=== PATIENT | female | born 1995 | race Caucasian/White ===

== ENCOUNTER 2019-07-22 23:45 | Inpatient (IN) | payer OTHER, SELFPAY ==
[2019-07-23] VITALS (75 sets, daily range): BP systolic 98–143; BP diastolic 50–123; PULSE 85–137; RESP 16–20; TEMP 36.6–37.4; O2SAT 85–100; BMI 31.2
--- NOTE | 2019-07-23 00:26 | LDADM ---
This patient, Demetrice Bangura, was admitted to Labor/Delivery/Recovery 107 on 07/22/19 at 23:45. Plans for labor, pain management and were discussed with patient. Patient/family oriented to hospital policies and general routines including ID bracelet, bed and alarms, visiting hours, pain management, procedures, bathroom and other care routines, personal items, smoking policy, room service/diet and guest tray routines, security routines, and visiting hours. Patient/Family are encouraged to report perceived risks to care and to ask questions if they do not understand what they are told or what they should do. See OBIX for further documentation.
[2019-07-23 00:32] LABS: Basophils Percent Auto 0.5 % (0.2-1.2); Eosinophils Absolute Auto 0.1 K/mm3 (0-0.3); Eosinophils Percent Auto 1.3 % (0-4.4); Hematocrit 34.7 % (37.0-47.0); Hemoglobin 11.7 g/dL (12.0-15.0); Immature Granulocyte Absolute 0.04 K/mm3 (0.00-0.031); Immature Granulocyte Percent A 0.5 % (0-0.5); Lymphocytes Absolute Auto 1.48 K/mm3 (0.9-3.2); Lymphocytes Percent Auto 17.1 % (18.3-44.2); Mean Corpuscular HGB Conc 33.7 g/dl (32-36); Mean Corpuscular Hemoglobin 31.1 pg (26-34); Mean Corpuscular Volume 92.3 fl (80-100); Mean Platelet Volume 10.4 fl (7.4-10.4); Monocytes Absolute Auto 0.9 K/mm3 (0.1-0.6); Monocytes Percent Auto 10.4 % (2.6-8.5); Neutrophils Absolute Auto 6.1 K/mm3 (1.3-6.7); Neutrophils Percent Auto 70.2 % (45.5-73.1); Platelet Count Result 216 k/mm3 (150-375); Red Blood Count 3.76 M/mm3 (4.2-5.4); Red Cell Distribution Width 13.5 % (11.5-14.5); White Blood Count 8.7 K/mm3 (4.5-10.0)
[2019-07-23] MEDS: AMPICILLIN 2 GM/NS 100 ML 2 GM/100 ML BAG IVPB (00:44)
[2019-07-23] MEDS: LACTATED RINGERS 1,000 ML 125 ML IV CONT ×2 (00:44→02:49)
[2019-07-23] MEDS: SALINE 0.65% NAS SOLN 44 ML BTL 1 SPRAY NASAL (01:26)
--- NOTE | 2019-07-23 03:08 | P.PNAN_ITS ---
Anes - Eval Pre Procedure Procedure: Labor epidural Date/Time: 07/23/19 03:08 Surgeon: Mayda Celeste M.D. Preop Diagnosis: pain during labor Pre Op Diagnosis: leaking fluid Patient Data Age: 24 Gender: F Height: 1.6 m Weight: 80 kg Last Vital Signs Temp 37.2 C 07/23/19 01:59 Pulse 110 H 07/23/19 03:07 Resp 20 07/23/19 01:59 BP 140/92 H 07/23/19 03:07 Pulse Ox 100 07/23/19 03:07 Allergies Allergy/AdvReac Type Severity Reaction Status Date / Time sertraline Allergy Mild Rash Verified 07/06/19 13:42 Home Medications Medication Instructions Recorded Confirmed Type PNV cmb#95-ferrous fumarate-FA 1 tablet PO DAILY 07/06/19 07/06/19 History [] Laboratory Tests 07/23/19 07/23/19 07/23/19 00:19 00:19 00:19 WBC 8.7 K/mm3 K/mm3 (4.5-10.0) RBC 3.76 M/mm3 L M/mm3 (4.2-5.4) Hgb 11.7 g/dL L g/dL (12.0-15.0) Hct 34.7 % L % (37.0-47.0) MCV 92.3 fl fl (80-100) MCH 31.1 pg pg (26-34) MCHC 33.7 g/dl g/dl (32-36) RDW 13.5 % % (11.5-14.5) Plt Count 216 k/mm3 k/mm3 (150-375) MPV 10.4 fl fl (7.4-10.4) Immature Gran % (Auto) 0.5 % % (0-0.5) Neut % (Auto) 70.2 % % (45.5-73.1) Lymph % (Auto) 17.1 % L % (18.3-44.2) [place] % (Auto) 10.4 % H % (2.6-8.5) Eos % (Auto) 1.3 % % (0-4.4) Baso % (Auto) 0.5 % % (0.2-1.2) Lymph # (Auto) 1.48 K/mm3 K/mm3 (0.9-3.2) [place] # (Auto) 0.9 K/mm3 H K/mm3 (0.1-0.6) Eos # (Auto) 0.1 K/mm3 K/mm3 (0-0.3) Baso # (Auto) 0.0 K/mm3 K/mm3 (0.0-0.1) Abs Immat Gran (auto) 0.04 K/mm3 H K/mm3 (0.00-0.031) Absolute Neuts (auto) 6.1 K/mm3 K/mm3 (1.3-6.7) Absolute Nucleated RBC 0.0 K/mm3 K/mm3 (0.0-0.012) Nucleated RBC % 0.0 % % (0.0-0.2) RPR Pending Blood Type A Positive Antibody Screen Negative Patient hx anesthesia problems: none Family hx anesthesia problems: none [facility] Past Medical History Medical History (Updated 07/23/19 @ 03:10 by Jacqueline Weinstein CRNA) Morbid obesity with BMI of 60.0-69.9, adult Spina bifida Social History Social History Smoking status: Former smoker Second hand tobacco smoke exposure: No Smoking end date: 06/08/14 Alcohol intake: current Substance use: never Gender identity (if verbalized by the patient): Female Spiritual care concerns: No Exam Day of Procedure 07/23/19 03:08
[2019-07-23] MEDS: AMPICILLIN 1 GM/NS 50 ML 1 GM/50 ML BAG IVPB (04:29)
--- NOTE | 2019-07-23 04:54 | PM.IMHP ---
H&P: HPI History of Present Illness Chief complaint: leaking fluid Narrative: Demetrice Bangura is a 24 yo @ 38.3wks who presented with spontaneous rupture of membranes @ 2310, clear. Mild contractions. No other complaints Review of Systems Review of Systems: All systems reviewed & are unremarkable except as noted in HPI and below PMFSH Past Medical History Medical History Morbid obesity with BMI of 60.0-69.9, adult Spina bifida Family History Family History Grandparent Family history of blood dyscrasia Cerebrovascular accident Family history of coronary artery disease Family history of pulmonary embolism Social History Social History Smoking status: Former smoker Second hand tobacco smoke exposure: No Smoking end date: 06/08/14 Alcohol intake: current Substance use: never Gender identity (if verbalized by the patient): Female Spiritual care concerns: No Meds Home Medications and Allergies Home Medications Medication Instructions Recorded Confirmed Type PNV cmb#95-ferrous fumarate-FA 1 tablet PO DAILY 07/06/19 07/06/19 History [] Allergies Allergy/AdvReac Type Severity Reaction Status Date / Time sertraline Allergy Mild Rash Verified 07/06/19 13:42 Vital Signs Vital Signs - 24 hr 07/23/19 00:06 07/23/19 00:07 07/23/19 00:15 Temperature 36.6 C Pulse Rate 107 H 105 H Respiratory Rate 18 Blood Pressure 113/62 119/76 Pulse Oximetry 07/23/19 00:30 07/23/19 00:45 07/23/19 01:00 Temperature Pulse Rate 103 H 101 H 93 Respiratory Rate Blood Pressure 106/78 118/75 127/76 Pulse Oximetry 07/23/19 01:59 07/23/19 02:01 07/23/19 02:16 Temperature 37.2 C Pulse Rate 105 H 100 Respiratory Rate 20 Blood Pressure 130/73 134/102 H Pulse Oximetry 07/23/19 02:30 07/23/19 02:31 07/23/19 02:45 Temperature Pulse Rate 97 108 H Respiratory Rate Blood Pressure 120/76 120/75 Pulse Oximetry 100 07/23/19 02:46 07/23/19 02:50 07/23/19 02:52 Temperature Pulse Rate 137 H 116 H Respiratory Rate Blood Pressure 128/78 124/75 Pulse Oximetry 85 L 07/23/19 02:53 07/23/19 02:55 07/23/19 02:56 Temperature Pulse Rate 117 H 108 H 111 H Respiratory Rate Blood Pressure 126/107 H 119/79 132/85 Pulse Oximetry 95 07/23/19 02:58 07/23/19 02:59 07/23/19 03:01 Temperature Pulse Rate 106 H 107 H Respiratory Rate Blood Pressure 121/82 98/78 L Pulse Oximetry 100 07/23/19 03:02 07/23/19 03:04 07/23/19 03:07 Temperature Pulse Rate 100 110 H Respiratory Rate Blood Pressure 111/80 124/70 140/92 H Pulse Oximetry 100 100 07/23/19 03:08 07/23/19 03:10 07/23/19 03:12 Temperature Pulse Rate 130 H 105 H 114 H Respiratory Rate Blood Pressure 135/123 H 116/69 119/73 Pulse Oximetry 100 07/23/19 03:15 07/23/19 03:17 07/23/19 03:18 Temperature Pulse Rate 104 H 104 H Respiratory Rate Blood Pressure 109/83 125/79 Pulse Oximetry 100 07/23/19 03:22 07/23/19 03:24 07/23/19 03:25 Temperature Pulse Rate 125 H 101 H Respiratory Rate Blood Pressure 143/85 H 130/74 Pulse Oximetry 100 100 07/23/19 03:28 07/23/19 03:29 07/23/19 03:30 Temperature Pulse Rate 103 H 101 H Respiratory Rate Blood Pressure 127/76 125/75 Pulse Oximetry 100 07/23/19 03:34 07/23/19 03:37 07/23/19 03:39 Temperature Pulse Rate 120 H 88 Respiratory Rate Blood Pressure 104/74 116/97 H Pulse Oximetry 99 100 07/23/19 03:40 07/23/19 03:43 07/23/19 03:46 Temperature Pulse Rate 121 H 114 H 109 H Respiratory Rate Blood Pressure 135/73 117/98 H 126/110 H Pulse Oximetry 93 07/23/19 03:48 07/23/19 03:49 07/23/19 03:53 Temperature Pulse Rate 106 H Respiratory Rate Bl
--- NOTE | 2019-07-23 05:24 | PM.OBPRVD ---
OB - Delivery Note Procedure Delivery date: 07/23/19 Procedure: Demetrice made adequate change to 10cm dilation. With good maternal effort, the head delivered over intact perineum. The shoulders and body delivered without complications. She delivered a male weighing 6lb 15oz, 19.5in, apgars 9/9. He had spontaneous cry and the mouth and nose were bulb suctioned. The baby was placed skin to skin and the umbilical cord was clamped and cut. A segment of the cord was then collected for cord gases. The remaining portion of the cord blood was collected for typing. The placenta was then delivered without complications by placing gentle downward traction on the cord. The fundus was noted to be firm. The perineum, vagina, and cervix were examined and no lacerations were noted. Minimal EBL was noted (50cc). The mother and baby were left in the birthing suite in a stable condition bonding, skin to skin. Intrapartal events: None Delivery augmentation: pitocin Delivery monitor: external FHT and internal uterine Route of delivery: Laceration description: None Specimen: No Estimated blood loss (mL): 50 Anesthesia type: Epidural Disposition: floor [place] Baby Date of : 07/23/19 Time of : 04:58 Weeks of gestation at delivery: 38 gender: Male Weight (pounds): 6 Weight (ounces): 15 presentation: vertex position: Left Occiput Anterior Placenta delivery description: Expressed cord vessel description: 3 Vessels score one minute: 9 score five minutes: 9
[2019-07-23] MEDS: MULTIVIT/MIN/PREN/FOL AC/IRON TABLET 1 TAB PO (09:33)
[2019-07-23] MEDS: IBUPROFEN 600 MG TABLET PO ×3 (09:33→23:54)
[2019-07-23] MEDS: DOCUSATE SODIUM 100 MG CAPSULE PO (09:33)
--- NOTE | 2019-07-23 15:21 | PC.NURSE ---
0755 Pt admitted to room 280 per wheelchair from labor and delivery after spontaneous vaginal delivery of viable male infant today at [address] Celeste. Mother is a and is choosing to breast feed . FOB present. Couple oriented to room, staffing and procedures. Admission folder reviewed with them. Pt's VSS and assessment WNL.
[2019-07-23] MEDS: LANOLIN (LANSINOH) 7.5 GM CREAM 1 APPLIC TOPICAL (16:28)
[2019-07-23] MEDS: ACETAMINOPHEN 325 MG TABLET 650 MG PO (19:10)
[2019-07-24] MEDS: IBUPROFEN 600 MG TABLET PO ×3 (05:41→18:36)
[2019-07-24 05:51] LABS: Hemoglobin 11.7 g/dL (12.0-15.0)
[2019-07-24 08:25] VITALS: BP 114/67; PULSE 82; RESP 18; TEMP 37.4; O2SAT 97
--- NOTE | 2019-07-24 11:16 | PM.OBPNVD ---
OB - PN: Subj Subjective Date/time seen: 07/24/19 11:16 Demetrice is a 24yo now P2012 s/p @ 38.3. This morning she is doing well. She is ambulating, tolerating regular diet, voiding, breast/bottle feeding. Bleeding is minimal. Pain is controlled. No GÓMEZ, CP, SOB, fever, chills, vision changes, N/V. OB - PN: Obj Data Labs CBC & Chem 7: 07/24/19 05:39 Labs: Laboratory Results - last 24 hr 07/24/19 05:39 Hgb 11.7 L Hct 36.0 L OB - PN A/P Assessment and Plan (1) Spontaneous rupture of membranes: Status: Acute Assessment and Plan: - Routine care; she is meeting all milestones - Labs/vitals stable - Breast pumping/bottle feeding - Will circumcise Hermelindo today - Anticipate discharge home tomorrow morning - Pelvic rest, ER return precautions, and take medications as prescribed previewed with the patient - Plan to Nexplanon for contraception - F/u in 3-4 weeks in clinic Time Spent With Patient Time: Total time spent is greater than 50% in coordination of care (as documented) at patient's floor/unit and/or counseling patient: Review of Systems Review of Systems: All systems reviewed & are unremarkable except as noted in HPI and below Exam Const: General: comfortable, no acute distress, alert and awake Resp: Effort & Inspection: normal respiratory effort Auscultation: clear to auscultation bilaterally Cardio: Rate: regular rate GI: Auscultation: normal bowel sounds Other: non-distended, soft, fundus firm below umbilicus Psych: Appearance: grossly normal Affect: normal affect Attitude: cooperative
[2019-07-24] MEDS: DOCUSATE SODIUM 100 MG CAPSULE PO (12:21)
[2019-07-24] MEDS: MULTIVIT/MIN/PREN/FOL AC/IRON TABLET 1 TAB PO (12:21)
[2019-07-24 20:00] VITALS: BP 116/73; PULSE 63; RESP 18; TEMP 36.4
[2019-07-25] MEDS: IBUPROFEN 600 MG TABLET PO (04:11)
--- NOTE | 2019-07-25 04:38 | PC.NURSE ---
I entered mother's room to bring her some requested Motrin. Baby was in his crib and there was a full opened bottle of formula on the table. I checked the feeding sheet and mother had not feed baby since 222 for 14 minutes at the breast (It was now 0410). I then asked mother if she was planning on or formula feeding baby. I haven't decided yet. I informed mother she needs to either breastfeed baby 15 minutes or bottlefeed baby formula and/or breastmilk at least 15 cc. Mother states understanding. Mother continues to state she is feeling pain in her areola area and back. I suggested she talk with out architectural sales consultant today before discharge. Can I wait and if I want to talk to her I can call out? I agreed with her request. Earlier in the evening mother called out at approximately 2230 asking for help to get baby to breastfeed. Mother had baby positioned well and baby was eagerly nursing. I suggested mother pull baby's bottom lip down in an attempt to get baby to latch and maintain a deeper latch. I also suggested mother nurse in a cross cradle hold. Mother changed positions from a cradle to cross cradle and seemed to be more comfortable. Mother then stated with her last baby she used those things you put over your nipple and feed and that helped alot. I asked if she meant a nippleshield and she said yes . I told mother we have them available here if she wants them. You do? Well yes, I would like to have one. I then explained to mother if she uses the nippleshield she must pump after because baby does not empty the sinuses of the breasts as much as without the nippleshield. Mother stated understanding and said she remembers that part with her last baby. A nippleshield and breastpump were taken in the room and I instructed mother on the breastpump use. Mother eagerly began pumping and I took baby to the nursery for his midnight assessment and bath. After baby's assessment mother met me at the nurse's station with 15 cc of expressed breastmilk. I had told the mother she could leave the breastmilk on the counter for 4 hrs and use it to feed baby with the next feeding. Mother wanted the breastmilk put in the refrigerator.
--- NOTE | 2019-07-25 07:18 | PC.NURSE ---
Patient was given the opportunity to view the discharge video Mother & Baby Care, The First Two Weeks and to ask questions. Patient declined viewing the video and has been given the mother/baby guide for home reference.
[2019-07-25 07:26] LABS: Rapid Plasma Reagin Non-Reactive (NonReactive)
[2019-07-25] MEDS: DOCUSATE SODIUM 100 MG CAPSULE PO (07:30)
[2019-07-25] MEDS: MULTIVIT/MIN/PREN/FOL AC/IRON TABLET 1 TAB PO (07:30)
[2019-07-25] MEDS: ACETAMINOPHEN 325 MG TABLET 650 MG PO (07:31)
[2019-07-25] MEDS: MEASLES,MUMPS,RUBELLA VACCINE 0.5 ML VIAL SUB-Q (07:34)
[2019-07-25 08:05] VITALS: BP 111/68; PULSE 68; RESP 16; TEMP 36.9; O2SAT 98
[2019-07-26 10:56] VITALS: BP 117/72; PULSE 67; RESP 16; TEMP 36.8
--- NOTE | 2019-07-26 14:42 | PM.OBDSVD ---
DS: Diagnosis Admitting Diagnosis Admitting Diagnosis: Encounter for supervision of normal , unspecified, third trimester OB - DS: Summary OB Procedures : None OB Procedures Intrapartum: Spontaneous Vag Delivery OB Procedures: : None Peripartum Data Delivery Method: Natural Vaginal Laceration description: None Episiotomy description: None complications: none [place] 1: Gender: Male (s/p circumcision) Disposition of : home Status at Discharge Functional status at discharge: independent ambulation Overall status at discharge: patient is back to baseline Time Spent with Patient Time attestation: Total time spent providing and/or coordinating discharge services: Exam Narrative: Exam Narrative: General: comfortable, no acute distress, alert and awake Resp: Effort & Inspection: normal respiratory effort Auscultation: clear to auscultation bilaterally Cardio Rate: regular rate GI Auscultation: normal bowel sounds Other: non-distended, soft, fundus firm below umbilicus Appearance: grossly normal Affect: normal affect Attitude: cooperative Discharge Plan Discharge Attending physician on discharge: Mayda Celeste Discharging Clinician: Mayda Celeste Anticipated Discharge Date/Time: 07/25/19 08:00 Patient Disposition: Home, Self-Care Activity: pelvic rest Diet: regular Discharge Instructions: Education: Mom and Baby Guide and Preeclampsia handout Given to: Mother Follow-Up: Call your delivering provider's office for an appointment to be seen in 4-6 weeks. Mom and baby should come to the [facility] for the follow-up appointment. Appointment Date/Time: July 26, 2019 at 11:00 am What to expect at your follow-up visit: Physical Assessment Call [phone] if you are unable to keep your appointment time. BREAST CARE: 1. Wear a snug supportive bra. 2. For engorgement discomfort: Breast Feeding: A. Apply warm moist washcloths B. Express milk as needed to relieve engorgement C. Wear loose clothing Bottle Feeding: A. May apply ice packs 3. For sore nipples: A. Identify correct latch-on B. Apply warm moist washcloths before and after nursing C. Air dry nipples after nursing D. May apply Lansinoh cream to nipples EPISIOTOMY/PERINEAL CARE: 1. Until bleeding stops, use your connie bottle after urinating 2. Change your pad frequently throughout the day 3. You may take sitz baths several times a day (fill your bathtub with warm water and soak for 20 minutes.) Do NOT bathe in the water 4. No tub baths until seen by your physician - You may shower ACTIVITY: 1. Rest as much as possible. 2. Do not exercise or lift anything heavier than your baby (such as laundry or other children.) 3. Avoid stairs or driving as much as possible. 4. Do not put anything into the vagina. No douching, tampons, or sexual activity until seen by physician. NOTIFY PHYSICIAN IF YOU HAVE ANY QUESTIONS OR IF ANY OF THE FOLLOWING SYMPTOMS OCCUR: 1. If your vaginal bleeding becomes foul smelling. 2. If your vaginal bleeding becomes more heavy than a period or if your bleeding changes from pink to bright red. However, you may pass an occasional walnut-sized clot once or twice for the first week . 3. If you experience a sharp, shooting pain in you calves. 4. If you discover a hard, reddened area on your breast or if you experience flu-like symptoms. DIET: 1. Eat regular, well-balanced meals. 2. Drink plenty of fluids daily. If , drink to thirst. Stand Alone Forms: General Discharge Information Follow-up/Referrals: Mayda Celeste MD [Physician] - Discharge Medications: New ibuprofen 600 mg Tablet 600 mg PO Q6H PRN (Reason: Cramping) 10 Days Qty: 40 RF: 0 Continued PNV cmb#95-ferrous fumarate-FA [] 28 mg iron- 800 mcg Tablet
== END 2019-07-25 10:27 | disposition home or self-care (01) | DRG 560 ==
LOC: ANHLDR 07-23 01:24 → ANHOB2 07-23 07:50
PROVIDERS: Admitting Provider Obstetrics & Gynecology; PCP Family Medicine; Visit Provider Obstetrics & Gynecology
DX: O99.214 Obesity complicating childbirth (principal); E66.01 Morbid (severe) obesity due to excess calories; Z37.0 Single live birth; Z87.891 Personal history of nicotine dependence; Z3A.38 38 weeks gestation of pregnancy; O99.824 Streptococcus B carrier state complicating childbirth; Z23 Encounter for immunization
CPT/HCPCS: 36415; 85014; 85018; 85025; 86592; 86850; 86900; 86901; 90471; 90686; 90710; A9270; G0008; J0290; J2590; J3010; J7120

== ENCOUNTER 2020-04-16 10:56 | Emergency (ER) | payer OTHER, SELFPAY ==
[2020-04-16 11:00] VITALS: BP 141/86; PULSE 109; RESP 18; TEMP 38.1; O2SAT 100
--- NOTE | 2020-04-16 11:41 | ED.GENADULT ---
HPI - General Adult General Chief complaint: Unspecified Stated complaint: Strep Positive, Fever Time Seen by Provider: 04/16/20 11:20 Source: patient and family Mode of arrival: ambulatory Limitations: no limitations History of Present Illness HPI narrative: Patient is a 25-year-old female who presents noting she has strep throat diagnosed a few days ago started taking antibiotics yesterday which is amoxicillin 1 dose yesterday missed her second took another today notes that she does get nausea with the medication patient has not taken anything today and notes congestion mild cough sore throat patient on arrival does not appear uncomfortable is in no distress denies vomiting diarrhea or other complaints Related Data Home Medications Medication Instructions Recorded Confirmed amoxicillin 500 mg PO Q12H 04/16/20 04/16/20 norgestimate-ethinyl estradiol tablet 04/16/20 [Tri-Sprintec (28)] Allergies Allergy/AdvReac Type Severity Reaction Status Date / Time sertraline Allergy Mild Rash Verified 04/16/20 11:17 Review of Systems Review of Systems: All systems reviewed & are unremarkable except as noted in HPI and below PMFSH Past Medical History Medical History (Updated 04/16/20 @ 11:44 by Viet Kimball PA-C) Morbid obesity with BMI of 60.0-69.9, adult Spina bifida Family History Family History Grandparent Family history of blood dyscrasia Cerebrovascular accident Family history of coronary artery disease Family history of pulmonary embolism Social History Social History Smoking status: Former smoker Second hand tobacco smoke exposure: No Smoking end date: 06/08/14 Alcohol intake: current Substance use: never Gender identity (if verbalized by the patient): Female Spiritual care concerns: No Exam Narrative: Exam Narrative: GENERAL: Well-appearing, well-nourished, and in no acute distress. HEAD: Normocephalic, atraumatic. EYES: PERRLA and EOMI. ENT: Nares clear, no rhinorrhea or epistaxis. Mucous membranes moist. Oropharynx with tonsillar hypertrophy no exudate no uvular deviation no trismus no drooling NECK: Supple. Anterior adenopathy on exam CHEST: Clear to auscultation. No respiratory distress. No wheezes rales or rhonchi HEART: Regular rate and rhythm. No murmur heard. EXTREMITIES: Normal range of motion. No edema. SKIN: Warm, dry, no rash. NEURO: No focal deficits. Alert and oriented x3. PSYCH: Normal mood and affect. Course Course Emergency Course: Patient in the room in no distress will be discharged home given ENT follow-up was given Bicillin shot and other medications in the emergency department patient nontoxic without emesis will be discharged home Vital Signs Vital signs: Vital Signs Temperature 100.6 F H 04/16/20 11:00 Pulse Rate 109 H 04/16/20 11:00 Respiratory Rate 18 04/16/20 11:00 Blood Pressure 141/86 H 04/16/20 11:00 Pulse Oximetry 100 04/16/20 11:00 Temperature 100.6 F H 04/16/20 11:00 Pulse Rate 109 H 04/16/20 11:00 Respiratory Rate 18 04/16/20 11:00 Blood Pressure 141/86 H 04/16/20 11:00 Pulse Oximetry 100 04/16/20 11:00 Medical Decision Making [facility] Narrative Medical decision making narrative: Patient with strep pharyngitis will be given a Bicillin shot prior to discharge due to difficulty with taking the pills patient on exam is in no distress does not appear uncomfortable there is no trismus no drooling uvula is midline patient is nontoxic-appearing in no distress felt appropriate for outpatient reevaluation Vital Signs Vital Signs: Vital Signs Temperature 100.6 F H 04/16/20 11:00 Pulse Rate 109 H 04/16/20 11:00 Respiratory Rate 18 04/16/20 11:00 Blood Pressure 141/86 H 04/16/20 11:00 Pulse Oximetry 100 04/16/20 11:00 Temperature 100.6 F H 04/16/20 11:00 Pulse Rate 109 H
[2020-04-16] MEDS: PENICILLIN G BENZATHINE 1,200,000 UNITS/2 ML SYRINGE 1200000 UNITS IM (11:51)
[2020-04-16] MEDS: IBUPROFEN 600 MG TABLET PO (11:51)
== END 2020-04-16 11:59 | disposition home or self-care (01) ==
PROVIDERS: Emergency Provider Emergency Medicine; PCP Family Medicine
DX: J02.0 Streptococcal pharyngitis (principal); E66.01 Morbid (severe) obesity due to excess calories; Z68.27 Body mass index [BMI] 27.0-27.9, adult; Q05.9 Spina bifida, unspecified; Z87.891 Personal history of nicotine dependence
CPT/HCPCS: 96372; 99283; A9270; J0561

== ENCOUNTER 2020-10-01 21:49 | Emergency (ER) | payer OTHER, SELFPAY ==
[2020-10-01 21:51] VITALS: BP 120/77; PULSE 64; RESP 18; TEMP 36.7; O2SAT 100
--- NOTE | 2020-10-01 21:55 | ECG_ITS ---
Measurements Intervals [place] Rate: 73 P: 35 AL: 137 QRS: 50 QRSD: 77 T: 54 QT: 384 QTc: 424 Interpretive Statements SINUS RHYTHM LOW QRS VOLTAGE IN PRECORDIAL LEADS CANNOT RULE OUT SEPTAL INFARCT, AGE INDETERMINATE ABNORMAL ECG Electronically Signed On 10-02-2020 6:53:00 CDT by Brendan Obregon D.O.
[2020-10-01 22:06] LABS: Basophils Absolute Auto 0.1 K/mm3 (0.0-0.1); Basophils Percent Auto 0.6 % (0.2-1.2); Eosinophils Absolute Auto 0.1 K/mm3 (0-0.3); Eosinophils Percent Auto 1.5 % (0-4.4); Hematocrit 42.1 % (37.0-47.0); Hemoglobin 14.1 g/dL (12.0-15.0); Immature Granulocyte Absolute 0.02 K/mm3 (0.00-0.031); Immature Granulocyte Percent A 0.2 % (0-0.5); Lymphocytes Absolute Auto 2.89 K/mm3 (0.9-3.2); Lymphocytes Percent Auto 35.2 % (18.3-44.2); Mean Corpuscular HGB Conc 33.5 g/dl (32-36); Mean Corpuscular Hemoglobin 31.3 pg (26-34); Mean Corpuscular Volume 93.3 fl (80-100); Mean Platelet Volume 9.8 fl (7.4-10.4); Monocytes Absolute Auto 0.8 K/mm3 (0.1-0.6); Monocytes Percent Auto 9.4 % (2.6-8.5); Neutrophils Absolute Auto 4.4 K/mm3 (1.3-6.7); Neutrophils Percent Auto 53.1 % (45.5-73.1); Platelet Count Result 299 k/mm3 (150-375); Red Blood Count 4.51 M/mm3 (4.2-5.4); Red Cell Distribution Width 12.4 % (11.5-14.5); White Blood Count 8.2 K/mm3 (4.5-10.0)
[2020-10-01 22:15] LABS: Alanine Aminotransferase 22 U/L (4-35); Albumin Level 4.6 g/dL (3.5-5.1); Alkaline Phosphatase 70 U/L (38-126); Anion Gap 7 mmol/L (8-16); Aspartate Amino Transferase 29 U/L (14-36); Bilirubin,Total 0.3 mg/dL (0.2-1.3); Blood Urea Nitrogen 14 mg/dL (7-17); Calcium 9.6 mg/dL (8.4-10.2); Carbon Dioxide 31 mmol/L (22-30); Chloride 104 mmol/L (98-107); Estimated CRCL calculation 91 ml/min; Estimated Glomerular Filt Rate > 60; Glucose 74 mg/dL (65-105); Lipase 48 U/L (23-300); Potassium 3.7 mmol/L (3.4-5.0); Sodium 142 mmol/L (137-145)
[2020-10-01 22:50] LABS: Add Urine Microscopic? YES; Appearance Urine Clear (Clear); Bilirubin Urine Negative (Negative); Blood Urine 3+ (Negative); Color Urine Straw (Yellow); Glucose Urine UA Negative (Negative); Ketones Urine Negative (Negative); Leukocyte Esterase Ur Negative LEU/UL (Negative); Nitrate Urine Negative (Negative); Protein Urine Negative (Negative); RBC Urine 0-2 /hpf (0-2); Specific Grav Ur 1.005 (1.001-1.035); Squamous Epithelial Cell Urine Rare /hpf (Few); Urobilinogen Urine Negative mg/dL (<2.0); WBC Urine 0-3 /hpf
[2020-10-01 23:26] LABS: Troponin I < 0.012 ng/mL (0.000-0.034)
[2020-10-01] MEDS: SODIUM CHLORIDE 0.9% IV 1,000 ML 999 ML IV CONT (23:26)
[2020-10-01] MEDS: PANTOPRAZOLE SODIUM IV 40 MG VIAL IV PUSH (23:27)
[2020-10-01] MEDS: ONDANSETRON INJ 4 MG/2 ML VIAL IV PUSH (23:27)
[2020-10-01] MEDS: BELLADONNA ALK/PHENOB ELIX 10 ML, MAG HYDROX/ALUMINUM HYD/SIMETH 30 ML, LIDOCAINE HCL 2... PO (23:30)
--- NOTE | 2020-10-01 23:54 | ED.GENADULT ---
HPI - General Adult General Chief complaint: Abdominal Pain Stated complaint: chest pain Time Seen by Provider: 10/01/20 22:26 History of Present Illness HPI narrative: Patient is a 25-year-old female who presents the emergency department with chief complaint of epigastric abdominal pain and low chest pain. Patient reports that this began yesterday reports that is not improved by anything nor is it worsened by anything. The patient reports that she did drink a bottle of wine and reports that she believes this may be contributing. Patient denies shortness of breath. Patient denies cardiac history Related Data Home Medications Medication Instructions Recorded Confirmed amoxicillin 500 mg PO Q12H 04/16/20 04/16/20 norgestimate-ethinyl estradiol tablet 04/16/20 [Tri-Sprintec (28)] Allergies Allergy/AdvReac Type Severity Reaction Status Date / Time sertraline Allergy Mild Rash Verified 04/16/20 11:17 Review of Systems Review of Systems: Narrative: A 10 system review of systems was completed on the patient and is negative except for what is stated in the HPI. Nursing and ancillary documentation was reviewed. [facility] Past Medical History Medical History (Updated 10/01/20 @ 23:57 by Shawn Gray MD) Morbid obesity with BMI of 60.0-69.9, adult Spina bifida Family History Family History Grandparent Family history of blood dyscrasia Cerebrovascular accident Family history of coronary artery disease Family history of pulmonary embolism Social History Social History Smoking status: Former smoker Second hand tobacco smoke exposure: No Smoking end date: 06/08/14 Alcohol intake: current Substance use: never Gender identity (if verbalized by the patient): Female Spiritual care concerns: No Exam Narrative: Exam Narrative: GENERAL: Well-appearing, well-nourished, and in no acute distress. HEAD: Normocephalic, atraumatic. EYES: PERRLA and EOMI. ENT: Nares clear, no rhinorrhea or epistaxis. Mucous membranes moist. NECK: Supple. CHEST: Clear to auscultation. No respiratory distress. HEART: Regular rate and rhythm. No murmur heard. Normal peripheral pulses. ABDOMEN: Soft, nontender, nondistended, normal active bowel sounds. EXTREMITIES: Normal range of motion. No edema. SKIN: Warm, dry, no rash. NEURO: No focal deficits. Alert and oriented x3. PSYCH: Normal mood and affect. Course Course Emergency Course: EKG sinus rhythm rate of [address] elevation or ST depression Vital Signs Vital signs: Vital Signs Temperature 36.7 C 10/01/20 21:51 Pulse Rate 64 10/01/20 21:51 Respiratory Rate 18 10/01/20 21:51 Blood Pressure 120/77 10/01/20 21:51 Pulse Oximetry 100 10/01/20 21:51 Temperature 36.7 C 10/01/20 21:51 Pulse Rate 64 10/01/20 21:51 Respiratory Rate 18 10/01/20 21:51 Blood Pressure 120/77 10/01/20 21:51 Pulse Oximetry 100 10/01/20 21:51 Medical Decision Making Vital Signs Vital Signs: Vital Signs Temperature 36.7 C 10/01/20 21:51 Pulse Rate 64 10/01/20 21:51 Respiratory Rate 18 10/01/20 21:51 Blood Pressure 120/77 10/01/20 21:51 Pulse Oximetry 100 10/01/20 21:51 Temperature 36.7 C 10/01/20 21:51 Pulse Rate 64 10/01/20 21:51 Respiratory Rate 18 10/01/20 21:51 Blood Pressure 120/77 10/01/20 21:51 Pulse Oximetry 100 10/01/20 21:51 Lab Data Result diagrams: 10/01/20 21:58 10/01/20 21:58 Labs: Lab Results 10/01/20 10/01/20 10/01/20 Range/Units 21:58 21:58 21:58 WBC 8.2 (4.5-10.0) K/mm3 RBC 4.51 (4.2-5.4) M/mm3 Hgb 14.1 (12.0-15.0) g/dL Hct 42.1 (37.0-47.0) % MCV 93.3 (80-100) fl MCH 31.3 (26-34) pg MCHC 33.5 (32-36) g/dl RDW 12.4 (11.5-14.5) % Plt Count 299 (150-375) k/mm3 MPV 9.
[2020-10-02 00:30] VITALS: BP 97/71; PULSE 65; RESP 16; O2SAT 99
== END 2020-10-02 00:29 | disposition home or self-care (01) ==
PROVIDERS: Emergency Medicine; Emergency Provider Emergency Medicine; PCP Family Medicine
DX: K29.00 Acute gastritis without bleeding (principal); R07.89 Other chest pain; E66.01 Morbid (severe) obesity due to excess calories; Z68.27 Body mass index [BMI] 27.0-27.9, adult; Q05.9 Spina bifida, unspecified; Z87.891 Personal history of nicotine dependence; R94.31 Abnormal electrocardiogram [ECG] [EKG]
CPT/HCPCS: 36415; 80053; 81001; 81025; 83690; 84484; 85025; 93005; 96361; 96374; 96375; 99284; A9270; C9113; J2405; J7030

== ENCOUNTER 2021-12-17 12:54 | Emergency (ER) | payer OTHER, SELFPAY ==
--- NOTE | ~2021-12-17 | XR_ITS ---
EXAMINATION: XR finger 4th RT min 2V DATE: 12/17/2021 13:15 INDICATION: Right hand fourth digit injury and pain. TECHNIQUE: 3 views of right hand fourth digit were obtained. COMPARISON: None. FINDINGS: There is a nondisplaced avulsion fracture of palmar base of fourth middle phalanx. Joint sp aces are normal. IMPRESSION: 1. Nondisplaced avulsion fracture of palmar base of fourth middle phalanx. Reviewed, dictated and finalized at location A.
[2021-12-17 13:04] VITALS: BP 105/77; PULSE 71; RESP 16; TEMP 37; O2SAT 99
--- NOTE | 2021-12-17 13:17 | ED.UPPEXIN ---
HPI - Extremity Injury (Upper) General Chief Complaint: Extremity Injury, Upper Stated Complaint: right 4th finger injury Time Seen by Provider: 12/17/21 13:18 Source: patient and RN notes reviewed Mode of arrival: ambulatory Limitations: no limitations History of Present Illness HPI narrative: 26-year-old female presents to the [facility] with right fourth finger pain after having it bent back last night. Patient states that her and her boyfriend were wrestling around last night. And he mistakenly bent the finger backwards. Bruising swelling noted to the palmar aspect at the base of the fourth right finger. Capillary refill under 2 seconds. Sensation intact distal to injury Related Data Home Medications Medication Instructions Recorded Confirmed norethindrone 1 mg-ethinyl 1 tablet PO DAILY 12/17/21 12/17/21 estradiol 20 mcg (21)-iron 75 mg (7) tablet (06/27 (28)) Allergies Allergy/AdvReac Type Severity Reaction Status Date / Time sertraline Allergy Mild Rash Verified 12/17/21 13:06 Review of Systems Review of Systems: All systems reviewed & are unremarkable except as noted in HPI and below Constitutional: Constitutional: Reports no additional constitutional complaints, Denies chills and Denies fever(s) Eyes: Eyes: Reports no additional eye complaints ENT: Reports system reviewed and no additional complaints, except as documented Cardiovascular: Cardiovascular: Reports no additional cardiovascular complaints Respiratory: Respiratory: Reports no additional respiratory complaints Gastrointestinal: Gastrointestinal: Reports no additional gastrointestinal complaints Musculoskeletal: Musculoskeletal: Reports as per HPI, Reports arthralgias and Reports joint swelling Integumentary/Breasts: Skin/Breast: Reports system reviewed and no additional complaints, except as docu Neurologic: Reports system reviewed and no additional complaints, except as documented Psychiatric: Psychiatric: Reports no additional psychiatric complaints Allergic/Immunologic: Allergic/Immunologic: Reports no additional allergic/immunologic complaints [facility] Past Medical History Medical History (Updated 12/17/21 @ 13:31 by Irasema Mcwilliams APRN) Morbid obesity with BMI of 60.0-69.9, adult Spina bifida Family History Family History Grandparent Family history of blood dyscrasia Cerebrovascular accident Family history of coronary artery disease Family history of pulmonary embolism Social History Social History Smoking status: Former smoker Second hand tobacco smoke exposure: No Smoking end date: 06/08/14 Alcohol intake: current Substance use: never Gender identity (if verbalized by the patient): Female Spiritual care concerns: No Comments At the time of my signature, I reviewed and agree with the nursing past medical, surgical, social, and family history. There is no relevant family history pertinent to the patient complaint. Exam Const: General: healthy appearing, no acute distress and alert Nutritional Appearance: well nourished Orientation/consciousness: patient oriented x3 Limitations: no limitations HENMT: Head: normal to inspection Ears: external ears normal Eyes: General: appearance normal, both eyes and all related structures Pupils: Equal, round and reactive pupils present Neck: Neck: normal visual inspection, no lymphadenopathy and no meningeal signs Chest: Chest palpation & inspection: normal inspection of the chest Resp: Effort & Inspection: normal respiratory effort and no use of accessory muscles Auscultation: clear to auscultation bilaterally, no crackles, no rales, no rhonchi and no wheezes Cardio: Rate: regular rate Rhythm: regular rhythm GI: GI Palp: Yes Soft to palpation and No Tenderness to palpation present (GI) Back/Spine/Pelvis: Cervical Spine:
== END 2021-12-17 13:50 | disposition home or self-care (01) ==
PROVIDERS: Emergency Provider Nurse Practitioner; PCP Family Medicine
DX: S62.644A Nondisplaced fracture of proximal phalanx of right ring finger, initial encounter for closed fracture (principal); X50.9XXA Other and unspecified overexertion or strenuous movements or postures, initial encounter; Y93.83 Activity, rough housing and horseplay; Z87.891 Personal history of nicotine dependence; Q05.9 Spina bifida, unspecified; E66.01 Morbid (severe) obesity due to excess calories; Z68.26 Body mass index [BMI] 26.0-26.9, adult
CPT/HCPCS: 29130; 73140; 99214; G0463

== ENCOUNTER 2022-04-13 12:13 | Emergency (ER) | payer OTHER, SELFPAY ==
[2022-04-13] VITALS (17 sets, daily range): BP systolic 80–118; BP diastolic 52–87; PULSE 89–119; RESP 14–22; TEMP 37.7–39.8; O2SAT 96–100
--- NOTE | ~2022-04-13 | XR_ITS ---
XR chest 2V DATE: 04/13/2022 12:54 INDICATION: Chest pain, shortness of breath, cold symptoms for 2 days TECHNIQUE: PA and lateral views COMPARISON: None FINDINGS: Normal heart size. No hilar or mediastinal enlargement. No pulmonary infiltrate or consolid ation, pleural effusion or pulmonary vascular congestion or pneumothorax. Mild thoracolumbar dextroscoliosis. IMPRESSION: No active cardiopulmonary disease Reviewed, dictated and finalized at location A. [employer]
--- NOTE | 2022-04-13 12:29 | ECG_ITS ---
Measurements Intervals [place] Rate: 119 P: 22 [place]: 160 QRS: 20 QRSD: 84 T: 33 QT: 307 QTc: 433 Interpretive Statements SINUS TACHYCARDIA ABNORMAL ECG COMPARED TO ECG 10/01/2020 21:59:30 SINUS TACHYCARDIA NOW PRESENT Electronically Signed On 04-13-2022 14:03:11 [employer]NC MACHINIST by Brendan Obregon D.O.
[2022-04-13 12:41] LABS: Basophils Percent Auto 0.4 % (0.2-1.2); Hemoglobin 14.4 g/dL (12.0-15.0); Immature Granulocyte Absolute 0.02 K/mm3 (0.00-0.031); Immature Granulocyte Percent A 0.3 % (0-0.5); Lymphocytes Absolute Auto 0.82 K/mm3 (0.9-3.2); Lymphocytes Percent Auto 11.7 % (18.3-44.2); Mean Corpuscular HGB Conc 33.5 g/dl (32-36); Mean Corpuscular Hemoglobin 31.2 pg (26-34); Mean Corpuscular Volume 93.3 fl (80-100); Mean Platelet Volume 9.6 fl (7.4-10.4); Monocytes Absolute Auto 0.8 K/mm3 (0.1-0.6); Monocytes Percent Auto 11.7 % (2.6-8.5); Neutrophils Absolute Auto 5.3 K/mm3 (1.3-6.7); Neutrophils Percent Auto 75.9 % (45.5-73.1); Platelet Count Result 228 k/mm3 (150-375); Red Blood Count 4.61 M/mm3 (4.2-5.4); Red Cell Distribution Width 12.3 % (11.5-14.5)
[2022-04-13 12:52] LABS: INR 1.1; Prothrombin Time 13.3 Seconds (11.1-14.7)
[2022-04-13 12:53] LABS: Alanine Aminotransferase 21 U/L (6-35); Albumin Level 4.6 g/dL (3.5-5.1); Alkaline Phosphatase 81 U/L (38-126); Anion Gap 13 mmol/L (8-16); Aspartate Amino Transferase 25 U/L (14-36); Bilirubin,Total 0.5 mg/dL (0.2-1.3); Blood Urea Nitrogen 9 mg/dL (7-17); Calcium 8.5 mg/dL (8.4-10.2); Carbon Dioxide 25 mmol/L (22-30); Chloride 98 mmol/L (98-107); Estimated CRCL calculation 91 ml/min; Estimated Glomerular Filt Rate > 60; Glucose 115 mg/dL (65-110); Lipase 58 U/L (23-300); Partial Thromboplastin Time 30.5 SECONDS (22.3-36.8); Potassium 3.7 mmol/L (3.4-5.0); Sodium 136 mmol/L (137-145)
[2022-04-13] MEDS: ACETAMINOPHEN 500 MG TABLET 1000 MG PO (13:03)
[2022-04-13 13:04] LABS: Troponin I < 0.012 ng/mL (0.000-0.034)
[2022-04-13 13:05] LABS: Influenza A QL RT-PCR Negative (Negative); Influenza B QL RT-PCR Negative (Negative); SARS-CoV-2 RNA PCR Negative
--- NOTE | 2022-04-13 13:47 | ED.URI ---
HPI - URI/Sore Throat General Chief Complaint: Upper Respiratory Infection Stated Complaint: h/a, decreased appetite, chest pains Time Seen by Provider: 04/13/22 13:39 History of Present Illness HPI Narrative: Patient is a 27-year-old female presenting with upper respiratory symptoms. Patient states that for the last 2 days she has had diffuse chest pain as well as a cough and some shortness of breath. States that she feels sore all over as well as intermittently dizzy. She is concerned that she has COVID. States that she woke up this morning and had a fever of 103 so she came in for evaluation. She did not take any medications prior to arrival. She denies headache, vision changes, abdominal pain, vomiting, diarrhea, leg swelling, dysuria. Related Data Home Medications Medication Instructions Recorded Confirmed norethindrone 1 mg-ethinyl 1 tablet PO DAILY 12/17/21 12/17/21 estradiol 20 mcg (21)-iron 75 mg (7) tablet (06/27 (28)) Allergies Allergy/AdvReac Type Severity Reaction Status Date / Time sertraline Allergy Mild Rash Verified 12/17/21 13:06 Review of Systems Review of Systems: All systems reviewed & are unremarkable except as noted in HPI and below [facility] Past Medical History Medical History (Updated 04/14/22 @ 00:00 by Igor Christensen) Morbid obesity with BMI of 60.0-69.9, adult Spina bifida Family History Family History Grandparent Family history of blood dyscrasia Cerebrovascular accident Family history of coronary artery disease Family history of pulmonary embolism Social History Social History Smoking status: Former smoker Second hand tobacco smoke exposure: No Smoking end date: 06/08/14 Alcohol intake: current Substance use: never Gender identity (if verbalized by the patient): Female Spiritual care concerns: No Exam Narrative: GENERAL: Nontoxic, no acute distress, appears slightly uncomfortable HEAD: Normocephalic, atraumatic. EYES: PERRLA and EOMI. ENT: Nares clear, no rhinorrhea or epistaxis. Mucous membranes moist. NECK: Supple. CHEST: Clear to auscultation. No respiratory distress. HEART: Tachycardic and regular rhythm. No murmur heard. Normal peripheral pulses. ABDOMEN: Soft, nontender, nondistended, normal active bowel sounds. EXTREMITIES: Normal range of motion. No edema. SKIN: Warm, dry, no rash. NEURO: No focal deficits. Alert and oriented x3. PSYCH: Normal mood and affect. Course Vital Signs Vital signs: Vital Signs Temperature 103.6 F H 04/13/22 12:21 Pulse Rate 115 H 04/13/22 12:21 Respiratory Rate 18 04/13/22 12:21 Blood Pressure 110/87 04/13/22 12:21 Pulse Oximetry 100 04/13/22 12:21 Temperature 99.8 F H 04/13/22 14:39 Pulse Rate 94 04/13/22 18:27 Respiratory Rate 18 04/13/22 18:27 Blood Pressure 114/76 04/13/22 18:27 Pulse Oximetry 99 04/13/22 18:27 MDM - URI/Sore Throat MDM Narrative Medical decision making narrative: Patient is a 27-year-old female presenting with URI symptoms. Patient is tachycardic on arrival as well as febrile. EKG per my interpretation shows sinus tachycardia, normal axis and intervals, no ST elevations or depressions. Blood work is unremarkable. Chest x-ray shows no acute abnormalities. Patient is negative for COVID and flu. Patient received fluids as well as Tylenol and Toradol. She is no longer tachycardic and her fever has come down. Patient states that she feels much better and she is tolerating p.o. intake. Feel patient is safe to go home with supportive care and PCP follow-up. Appropriate return precautions were given. Patient voiced understanding and is agreeable with plan. Discharged in stable condition. Lab Data Result diagrams: 04/13/22 12:35 04/13/22 12:35 Labs: Lab Results 04/13/22 11
[2022-04-13] MEDS: KETOROLAC 15 MG/ML VIAL (*BKC) IV PUSH (13:59)
[2022-04-13] MEDS: SODIUM CHLORIDE 0.9% IV 1,000 ML 999 ML IV CONT ×2 (13:59→16:16)
[2022-04-13 14:19] LABS: D Dimer 0.44 ug/mL (<0.48)
[2022-04-13 15:49] LABS: Troponin I < 0.012 ng/mL (0.000-0.034)
== END 2022-04-13 16:20 | disposition home or self-care (01) ==
PROVIDERS: Emergency Medicine; Emergency Provider Emergency Medicine; PCP Family Medicine
DX: J06.9 Acute upper respiratory infection, unspecified (principal); Z20.822 Contact with and (suspected) exposure to COVID-19; Q05.9 Spina bifida, unspecified; E66.01 Morbid (severe) obesity due to excess calories; Z68.25 Body mass index [BMI] 25.0-25.9, adult; Z87.891 Personal history of nicotine dependence; R00.0 Tachycardia, unspecified
CPT/HCPCS: 36415; 71046; 80053; 83690; 84484; 85025; 85380; 85610; 85730; 87502; 93005; 96361; 96374; 99284; A9270; J1885; J7030; U0003; U0005

== ENCOUNTER 2022-10-17 10:46 | Emergency (ER) | payer OTHER, SELFPAY ==
[2022-10-17 10:54] VITALS: BP 131/72; PULSE 80; RESP 20; TEMP 37.4; O2SAT 100
--- NOTE | 2022-10-17 11:24 | ED.SKABFB ---
HPI - Skin/Abscess/Foreign Bdy General Chief complaint: Skin/Abscess/Foreign Body Stated complaint: Allergic reaction on face Time Seen by Provider: 10/17/22 11:13 Source: patient Mode of arrival: ambulatory Limitations: no limitations History of Present Illness HPI narrative: Patient presents today complaining of a rash to her upper chest, bilateral arms, neck, face since yesterday, significantly worse today. She believes that she is allergic to her leopard gecko. She did have and a similar allergic reaction in September and was given some triamcinolone cream to use. She has been using that and an antihistamine without relief. She was told by her chute greaser that some people are allergic to the phermones of the gecko. States she can have some tingling sensations on her hands when she handles it. Related Data Home Medications Medication Instructions Recorded Confirmed norethindrone 1 mg-ethinyl 1 tablet PO DAILY 12/17/21 10/17/22 estradiol 20 mcg ()-iron 75 mg (7) tablet (06/27 (28)) lisdexamfetamine 20 mg capsule 1 mg PO DAILY 10/17/22 10/17/22 (Vyvanse) Allergies Allergy/AdvReac Type Severity Reaction Status Date / Time sertraline Allergy Mild Rash Verified 10/17/22 10:49 Review of Systems Review of Systems: CONSTITUTIONAL: Denies body aches, fever, chills, or sweats. EYES: Denies visual changes, redness, or discharge. ENT: Denies rhinorrhea, congestion, sore throat, or otalgia. CARDIOVASCULAR: Denies chest pain, palpitations, or edema. RESPIRATORY: Denies cough or dyspnea. GASTROINTESTINAL: Denies abdominal pain, nausea, vomiting, or diarrhea. GENITOURINARY: Denies dysuria or hematuria. SKIN: + pruritic rash. MUSCULOSKELETAL: Denies back pain, joint pain, or myalgia. NEUROLOGIC: Denies headache, numbness, tingling, or weakness. PSYCH: Denies depression or anxiety. [facility], [facility] Past Medical History Medical History (Updated 10/17/22 @ 11:28 by Marcia Savage, [facility], ) Morbid obesity with BMI of 60.0-69.9, adult Spina bifida Family History Family History Grandparent Family history of blood dyscrasia Cerebrovascular accident Family history of coronary artery disease Family history of pulmonary embolism Social History Social History Smoking status: Former smoker Second hand tobacco smoke exposure: No Smoking end date: 06/08/14 Alcohol intake: current Substance use: never Gender identity (if verbalized by the patient): Female Spiritual care concerns: No Comments At time of signature, I have reviewed and agree with nursing past medical, surgical, social and family history unless otherwise noted. Please see nursing chart for further information. There is no relevant family history pertinent to the presenting complaint Exam Narrative: GENERAL: Well-appearing, well-nourished, and in no acute distress. HEAD: Normocephalic, atraumatic. EYES: EOMI. No redness or drainage. Conjunctivae normal. ENT: Mucous membranes pink and moist. NECK: Normal AROM. Supple. No lymphadenopathy. CHEST: No respiratory distress. EXTREMITIES: Normal range of motion. No edema. SKIN: Warm, dry. Capillary refill normal. Normal skin turgor. Erythematous maculopapular rash to bilateral arms, diffuse over the left upper chest and neck as well as the forehead and bilateral cheeks. Patient does have some slight swelling of the left forehead and eyebrow area as well. NEURO: No focal deficits. Alert and oriented x3. Gait steady. PSYCH: Normal affect. No signs of depression or anxiety. Course Course Level of Care: Express Care Visit Vital Signs Vital signs: Vital Signs Temperature 99.4 F 10/17/22 10:54 Pulse Rate 80 10/17/22 10:54 Respiratory Rate 20 10/17/22 10:54 Blood Pressure 131/72 10/17/22 10:54 Pulse Oximetry 100 10/17/22 1
== END 2022-10-17 11:35 | disposition home or self-care (01) ==
PROVIDERS: Emergency Provider Nurse Practitioner; PCP Physician Assistant
DX: L23.9 Allergic contact dermatitis, unspecified cause (principal); Z87.891 Personal history of nicotine dependence; Q05.9 Spina bifida, unspecified; E66.01 Morbid (severe) obesity due to excess calories; Z68.23 Body mass index [BMI] 23.0-23.9, adult
CPT/HCPCS: 99213; G0463

== ENCOUNTER 2024-06-02 11:22 | Emergency (ER) | payer OTHER, SELFPAY ==
[2024-06-02 11:29] VITALS: BP 119/66; PULSE 71; RESP 20; TEMP 36.5; O2SAT 96
--- NOTE | 2024-06-02 12:43 | ED_ITS ---
HPI - Dental/Oral General Chief complaint: Dental/Oral <Rola Schuler PA-C - Last Filed: 06/06/24 17:19> Stated complaint: thrush <Rola Schuler PA-C - Last Filed: 06/06/24 17:19> Time Seen by Provider: 06/02/24 12:43 <Rola Schuler PA-C - Last Filed: 06/06/24 17:19> Focused HPI: This is a 29 year old female that presents to the ER for sore throat. She has her tonsils out about [address] Parks. Has had worsening sore throat and trouble swallowing since the surgery. She has her follow up appointment next Thursday. GENERAL: Well-appearing, well-nourished, and in no acute distress. ENT: White patched noted in the posterior oropharynx. Mild swelling and redness of the uvula HEAD: Normocephalic, atraumatic. CHEST: Clear to auscultation. ?No respiratory distress. HEART: Regular rate and rhythm.? NEURO: ?Alert and oriented x3. Patient screened in triage and initial orders placed.? ?Additional care and disposition to be based upon?diagnostic testing and treatment. <Rola Schuler PA-C - Last Filed: 06/06/24 17:19> Related Data Home medications: Home Medications ?Medication ?Instructions ?Recorded ?Confirmed ?Last Taken ?Type norethindrone 1 mg-ethinyl 1 tablet PO DAILY 12/17/21 10/17/22 Unknown History estradiol 20 mcg (21)-iron 75 mg (7) tablet (06/27 (28)) lisdexamfetamine 20 mg capsule 1 mg PO DAILY 10/17/22 10/17/22 Unknown History (Vyvanse) <Rola Schuler PA-C - Last Filed: 06/06/24 17:19> Allergies/adverse reactions: Allergies Allergy/AdvReac Type Severity Reaction Status Date / Time sertraline Allergy Mild Rash Verified 02/19/23 11:11 <Rola Schuler PA-C - Last Filed: 06/06/24 17:19> Review of Systems 2 Review of Systems: All systems reviewed & are unremarkable except as noted in HPI and below <Myke Hodge MD - Last Filed: 06/02/24 19:19> [facility] Past Medical History Medical History: Medical History (Updated 06/03/24 @ 00:00 by Igor Christensen) Pericarditis Inflammatory arthritis Morbid obesity with BMI of 60.0-69.9, adult Spina bifida <Rola Schuler PA-C - Last Filed: 06/06/24 17:19> Family History Family History: Family History Grandparent Family history of blood dyscrasia Cerebrovascular accident Family history of coronary artery disease Family history of pulmonary embolism <Rola Schuler PA-C - Last Filed: 06/06/24 17:19> Social History Social History: Social History Smoking status: Former smoker Second hand tobacco smoke exposure: No Smoking end date: 06/08/14 Alcohol intake: current Substance use: never Substance use type: does not use Lack of Transportation: No Lack of Food: Never True Current Housing: I Have Housing Concerned About Future Housing: No Difficulty Paying Gas/Electric Bills: No Difficulty Paying for Meds: No Currently Unemployed: No Education: Decline to Answer Difficulty w/ Childcare or Family Care: No Living arrangements: with family Occupation/Education: occupation Additional occupation/education comments: EMT Gender identity (if verbalized by the patient): Female Spiritual care concerns: No <Rola Schuler PA-C - Last Filed: 06/06/24 17:19> Exam 2 Narrative: APPEARANCE: Well appearing, no pain, no distress, well-nourished. HEAD: normocephalic, atraumatic. EYES: PERRLA/EOMI, conjunctivae clear. NOSE: Normal no drainage EARS:TMS clear with good light reflex. THROAT: White eschars from tonsillectomy are intact and well-appearing. No thrush on tongue or posterior throat. Mild uvular hydrops. NECK: Supple. No adenopathy, no masses. RESPIRATORY: Airway patent, respirations nonlabored. Clear to auscultation bilaterally, no rales, rhonchi, wheezing. CARDIOVASCULAR: Regular rate and rhythm without murmurs rubs or gallops. ABDOMINAL: Soft, nontender, nondistended, normal bowel sounds MUSCULOSKELETAL: Moves all extremities. Strength/ROM intact, No edema, No calf tenderness. NEURO: Alert. Cranial nerves II through XII intact. Grossly intact SKIN: Warm, dry. Normal Color <Myke Hodge MD - Last Filed: 06/02/24 19:19> Course Vital Signs Vital signs: Vital Signs Temperature 97.7 F 06/02/24 11:29 Pulse Rate 71 06/02/24 11:29 Respiratory Rate 20 06/02/24 11:29 Blood Pressure 119/66 06/02/24 11:29 Pulse Oximetry 96 06/02/24 11:29 Oxygen Delivery Room Air 06/02/24 11:29 Temperature 97.6 F 06/02/24 15:43 Pulse Rate 81 06/02/24 15:43 Respiratory Rate 17 06/02/24 15:43 Blood Pressure 118/72 06/02/24 15:43 Pulse Oximetry 98 06/02/24 15:43 Oxygen Delivery Room Air 06/02/24 11:29 <Rola Schuler PA-C - Last Filed: 06/06/24 17:19> Vital Signs Temperature 97.7 F 06/02/24 11:29 Pulse Rate 71 06/02/24 11:29 Respiratory Rate 20 06/02/24 11:29 Blood Pressure 119/66 06/02/24 11:29 Pulse Oximetry 96 06/02/24 11:29 Oxygen Delivery Room Air 06/02/24 11:29 Temperature 97.6 F 06/02/24 15:43 Pulse Rate 81 06/02/24 15:43 Respiratory Rate 17 06/02/24 15:43 Blood Pressure 118/72 06/02/24 15:43 Pulse Oximetry 98 06/02/24 15:43 Oxygen Delivery Room Air 06/02/24 11:29 <Myke Hodge MD - Last Filed: 06/02/24 19:19> MDM - Dental/Oral MDM Narrative Medical decision making narrative: 29-year-old female present to the emergency department for evaluation for sore throat after having a tonsillectomy approximately 9 days ago. Patient is afebrile with no leukocytosis and hemoglobin of 14. Patient did have elevated ESR at 40 to and an elevated CRP of 1.8, patient was negative for mono influenza RSV and COVID. Patient was treated with a L of IV fluid and did feel improved. Patient states she is almost out of pain medication, patient will be prescribed additional pain medication. Patient was also treated with a dose dexamethasone. Patient and family were comfortable with the plan for discharge and close follow-up. All questions concerns were addressed. <Myke Hodge MD - Last Filed: 06/02/24 19:19> Differential Diagnosis Differential diagnosis: Likely gingival abscess and other (Thrush, postop bleeding, postop infection) <Myke Hodge MD - Last Filed: 06/02/24 19:19> Lab Data Attestation: I reviewed the patient's lab results. <Myke Hodge MD - Last Filed: 06/02/24 19:19> Result diagrams: 06/02/24 13:01 06/02/24 13:01 <Rola Schuler PA-C - Last Filed: 06/06/24 17:19> Labs: Lab Results 06/02/24 06/02/24 06/02/24 Range/Units 13:01 14:16 15:02 WBC 7.6 (4.5-10.0) K/mm3 RBC 4.42 (4.2-5.4) M/mm3 Hgb 14.1 (12.0-15.0) g/dL Hct 40.8 (37.0-47.0) % MCV 92.3 (80-100) fl MCH 31.9 (26-34) pg MCHC 34.6 (32-36) g/dl RDW 11.4 L (11.5-14.5) % Plt Count 329 (150-375) k/mm3 MPV 9.3 (7.4-10.4) fl Immature Gran % (Auto) 0.3 (0-0.5) % Neut % (Auto) 66.9 (45.5-73.1) % Lymph % (Auto) 22.7 (18.3-44.2) % [place] % (Auto) 9.1 H (2.6-8.5) % Eos % (Auto) 0.3 (0-4.4) % Baso % (Auto) 0.7 (0.2-1.2) % Lymph # (Auto) 1.72 (0.9-3.2) K/mm3 [place] # (Auto) 0.7 H (0.1-0.6) K/mm3 Eos # (Auto) 0.0 (0-0.3) K/mm3 Baso # (Auto) 0.1 (0.0-0.1) K/mm3 Abs Immat Gran (auto) 0.02 (0.00-0.031) K/mm3 Absolute Neuts (auto) 5.1 (1.3-6.7) K/mm3 Absolute Nucleated RBC 0.000 (0.0-0.012) K/mm3 Nucleated RBC % 0.0 (0.0-0.2) % ESR 42 H (0-20) mm/hr Sodium 136 L (137-145) mmol/L Potassium 4.3 (3.4-5.0) mmol/L Chloride 105 (98-107) mmol/L Carbon Dioxide 25 (22-30) mmol/L Anion Gap 6 (4-12) mmol/L BUN 10 (7-17) mg/dL Creatinine 0.60 L (0.7-1.0) mg/dL Estim Creat Clear Calc 102 ml/min Estimated GFR > 60 (59 - ) Glucose 67 (65-110) mg/dL POC Capillary Glucose 56 L* 185 H (65-105) mg/dl Calcium 9.6 (8.4-10.2) mg/dL C-Reactive Protein 1.8 H (<1.0) mg/dL Monoscreen Negative (Negative) Influenza A (RT-PCR) Negative (Negative) Influenza B (RT-PCR) Negative (Negative) SARS-CoV-2 RNA (RT-PCR) Negative (Negative) <Rola Schuler PA-C - Last Filed: 06/06/24 17:19> Lab Results 06/02/24 06/02/24 06/02/24 Range/Units 13:01 14:16 15:02 WBC 7.6 (4.5-10.0) K/mm3 RBC 4.42 (4.2-5.4) M/mm3 Hgb 14.1 (12.0-15.0) g/dL Hct 40.8 (37.0-47.0) % MCV 92.3 (80-100) fl MCH 31.9 (26-34) pg MCHC 34.6 (32-36) g/dl RDW 11.4 L (11.5-14.5) % Plt Count 329 (150-375) k/mm3 MPV 9.3 (7.4-10.4) fl Immature Gran % (Auto) 0.3 (0-0.5) % Neut % (Auto) 66.9 (45.5-73.1) % Lymph % (Auto) 22.7 (18.3-44.2) % [place] % (Auto) 9.1 H (2.6-8.5) % Eos % (Auto) 0.3 (0-4.4) % Baso % (Auto) 0.7 (0.2-1.2) % Lymph # (Auto) 1.72 (0.9-3.2) K/mm3 [place] # (Auto) 0.7 H (0.1-0.6) K/mm3 Eos # (Auto) 0.0 (0-0.3) K/mm3 Baso # (Auto) 0.1 (0.0-0.1) K/mm3 Abs Immat Gran (auto) 0.02 (0.00-0.031) K/mm3 Absolute Neuts (auto) 5.1 (1.3-6.7) K/mm3 Absolute Nucleated RBC 0.000 (0.0-0.012) K/mm3 Nucleated RBC % 0.0 (0.0-0.2) % ESR 42 H (0-20) mm/hr Sodium 136 L (137-145) mmol/L Potassium 4.3 (3.4-5.0) mmol/L Chloride 105 (98-107) mmol/L Carbon Dioxide 25 (22-30) mmol/L Anion Gap 6 (4-12) mmol/L BUN 10 (7-17) mg/dL Creatinine 0.60 L (0.7-1.0) mg/dL Estim Creat Clear Calc 102 ml/min Estimated GFR > 60 (59 - ) Glucose 67 (65-110) mg/dL POC Capillary Glucose 56 L* 185 H (65-105) mg/dl Calcium 9.6 (8.4-10.2) mg/dL C-Reactive Protein 1.8 H (<1.0) mg/dL Monoscreen Negative (Negative) Influenza A (RT-PCR) Negative (Negative) Influenza B (RT-PCR) Negative (Negative) SARS-CoV-2 RNA (RT-PCR) Negative (Negative) <Myke Hodge MD - Last Filed: 06/02/24 19:19> Critical Care Time Critical Care Time Critical Care Time: No <Rola Schuler PA-C - Last Filed: 06/06/24 17:19> Discharge Plan Discharge Clinical Impression: Post-tonsillectomy pain <Rola Schuler PA-C - Last Filed: 06/06/24 17:19> Patient Disposition: Home, Self-Care <Rola Schuler PA-C - Last Filed: 06/06/24 17:19> Condition: Stable <Rola Schuler PA-C - Last Filed: 06/06/24 17:19> Instructions: Antibiotic Form, Tonsillectomy (DC) <Rola Schuler PA-C - Last Filed: 06/06/24 17:19> Additional Instructions: Home medications for pain control. Soft diet or clear liquid diet and advance as tolerated. Continue have close follow-up with your ENT. If you have any worsening symptoms then please call or return to the emergency department. <Rola Schuler PA-C - Last Filed: 06/06/24 17:19> Patient Language: Turkish <Rola Schuler PA-C - Last Filed: 06/06/24 17:19> Prescriptions: New hydrocodone-acetaminophen 5-325 mg tablet 1 tablet PO Q12H PRN (Reason: pain) Qty: 14 0RF No Action norethindrone-e.estradiol-iron [06/27 (28)] 1 mg-20 mcg (21)/75 mg (7) tablet 1 tablet PO DAILY Vyvanse 20 mg capsule 1 mg PO DAILY prednisone 10 mg tablet See Rx Instructions .ROUTE .COMPLEX Qty: 42 0RF Rx Instructions: 5 tabs daily x3 days,then 4 tabs daily x3 days,then 3 tabs daily x3 days,then 2 tabs daily x3 days <Rola Schuler PA-C - Last Filed: 06/06/24 17:19> Follow-up/Referrals: Rodriguez,CAPRI Christiansen [Primary Care Provider] - <Rola Schuler PA-C - Last Filed: 06/06/24 17:19>
[2024-06-02 13:15] LABS: Basophils Absolute Auto 0.1 K/mm3 (0.0-0.1); Basophils Percent Auto 0.7 % (0.2-1.2); Eosinophils Percent Auto 0.3 % (0-4.4); Hematocrit 40.8 % (37.0-47.0); Hemoglobin 14.1 g/dL (12.0-15.0); Immature Granulocyte Absolute 0.02 K/mm3 (0.00-0.031); Immature Granulocyte Percent A 0.3 % (0-0.5); Lymphocytes Absolute Auto 1.72 K/mm3 (0.9-3.2); Lymphocytes Percent Auto 22.7 % (18.3-44.2); Mean Corpuscular HGB Conc 34.6 g/dl (32-36); Mean Corpuscular Hemoglobin 31.9 pg (26-34); Mean Corpuscular Volume 92.3 fl (80-100); Mean Platelet Volume 9.3 fl (7.4-10.4); Monocytes Absolute Auto 0.7 K/mm3 (0.1-0.6); Monocytes Percent Auto 9.1 % (2.6-8.5); Neutrophils Absolute Auto 5.1 K/mm3 (1.3-6.7); Neutrophils Percent Auto 66.9 % (45.5-73.1); Platelet Count Result 329 k/mm3 (150-375); Red Blood Count 4.42 M/mm3 (4.2-5.4); Red Cell Distribution Width 11.4 % (11.5-14.5); White Blood Count 7.6 K/mm3 (4.5-10.0)
[2024-06-02 13:29] LABS: Anion Gap 6 mmol/L (4-12); Blood Urea Nitrogen 10 mg/dL (7-17); CRP 1.8 mg/dL (<1.0); Calcium 9.6 mg/dL (8.4-10.2); Carbon Dioxide 25 mmol/L (22-30); Chloride 105 mmol/L (98-107); Estimated CRCL calculation 102 ml/min; Estimated Glomerular Filt Rate > 60; Glucose 67 mg/dL (65-110); Potassium 4.3 mmol/L (3.4-5.0); Sodium 136 mmol/L (137-145)
[2024-06-02 13:59] LABS: Influenza A QL RT-PCR Negative (Negative); Influenza B QL RT-PCR Negative (Negative); SARS-CoV-2 RNA PCR Negative (Negative)
[2024-06-02 14:05] LABS: Monoscreen Negative (Negative); Negative Monotest Control Negative (Negative); Positive Monotest Control Positive (Positive)
[2024-06-02 14:20] LABS: Erythrocyte Sedimentation Rate 42 mm/hr (0-20)
[2024-06-02] MEDS: SODIUM CHLORIDE 0.9% IV 1,000 ML 999 ML IV CONT (14:24)
[2024-06-02] MEDS: DEXTROSE 50% 25 GM/50 ML SYRINGE IV PUSH (14:25)
[2024-06-02 15:05] LABS: Glucose Point of Care 56 mg/dl (65-105)
[2024-06-02 15:05] LABS: Glucose Point of Care 185 mg/dl (65-105)
[2024-06-02] MEDS: dexAMETHasone SOD PHOS INJ 10 MG/ML 1 ML VIAL IV PUSH (15:34)
[2024-06-02 15:43] VITALS: BP 118/72; PULSE 81; RESP 17; TEMP 36.4; O2SAT 98
== END 2024-06-02 15:44 | disposition home or self-care (01) ==
PROVIDERS: Physician Assistant; Emergency Provider Emergency Medicine; PCP Physician Assistant
DX: G89.18 Other acute postprocedural pain (principal); Z90.89 Acquired absence of other organs; Z20.822 Contact with and (suspected) exposure to COVID-19
CPT/HCPCS: 36415; 80048; 82948; 85025; 85652; 86140; 86308; 87636; 96361; 96374; 99284; J1100; J7030